=== PATIENT | female | born 2000 | race Two or more races ===

== ENCOUNTER 2022-11-02 22:48 | Emergency (ER) | payer MEDICAID ==
[~2022-11-02] VITALS: Ht 170.2 cm; Wt 80.7 kg
[2022-11-02 22:59] VITALS: BP 128/82
[2022-11-02] MEDS ORDERED: ECON15CR2 TP (23:09)
--- NOTE | 2022-11-02 23:09 | NUR ---
Patient discharged to home in stable condition. Written and verbal after care instructions given. Patient verbalizes understanding of instruction.
== END 2022-11-02 23:15 | disposition home or self-care (01) ==
LOC: ER 22:51
DX: B35.6 Tinea cruris (principal); Z79.899 Other long term (current) drug therapy; Z60.2 Problems related to living alone